=== PATIENT | female | born 1950 | race Caucasian/White ===

== ENCOUNTER 2016-08-08 11:28 | Emergency (ER) | payer SELFPAY ==
[~2016-08-08] VITALS: Ht 167.6 cm; Wt 108.9 kg
--- NOTE | 2016-08-08 11:38 | NUR ---
Patient to bed 6 at this time by EMS.
[2016-08-08 11:56] VITALS: BP 175/89
[2016-08-08] MEDS ORDERED: predniSONE 20 MG TAB PO ONE (12:05)
[2016-08-08] MEDS ORDERED: BUPIVACAINE-MPF 0.5% 10 ML VIAL INJ ONE (12:05)
[2016-08-08] MEDS ORDERED: ALBUTEROL SULFATE/IPRATROPIU 3 ML SOL IH ONE (12:05)
--- NOTE | 2016-08-08 12:10 | NUR ---
ADMITING DX: SEEKING MEDICAL ATTENTION HX: COPD/ASTHMA PATIENT AWAKE AND ALERT RESPONSIVE TO INSURANCE UNDERWRITING ASSISTANT VERBAL COMMANDS PATIENT C/O SON IN HFW POSITION SOB EDUCATION PROVIDED TO PATIENT WITH ACKNOWLEDGEMENT ON HHN THERAPY AND RESPIRATORY DRUG HHN THERAPY GIVEN ORDERED ENCOURAGED DEEP BREATH AND COUGH DURING THERAPY TOLERATED WELL WITHOUT INCIDENT
[2016-08-08] MEDS ORDERED: ONDANSETRON 4 MG/2 ML VIAL IM ONE (12:15)
[2016-08-08] MEDS ORDERED: HYDROmorphone 1 MG/ML AMP IM ONE (12:15)
--- NOTE | 2016-08-08 12:25 | NUR ---
XRAY AT BEDSIDE.
[2016-08-08] MEDS ORDERED: NEOMYCIN/POLYMYXIN/BACITRACIN 0.9 GM/1 PKT TP ONE (14:00)
[2016-08-08] MEDS ORDERED: HYDROmorphone 2 MG TAB PO ONE (14:05)
--- NOTE | 2016-08-08 14:25 | NUR ---
Taxi called for patient. Pt is going to pay for her taxi. Pt made aware, pt states she has her son that can help her at home.
[2016-08-08 15:05] VITALS: BP 174/81
--- NOTE | 2016-08-08 15:06 | NUR ---
Patient discharged with v/s stable. Written and verbal after care instructions given and explained. Patient alert, oriented and verbalized understanding of instructions. Ambulatory with steady gait. All questions addressed prior to discharge. ID band removed. Patient advised to follow up with PMD. Rx of DILAUDID, ZOFRAN given. Patient educated on indication of medication including possible reaction and side effects. Opportunity to ask questions provided and answered.
== END 2016-08-08 15:06 | disposition home or self-care (01) ==
LOC: MED 11:28
DX: S80.01XA Contusion of right knee, initial encounter (principal); S60.512A Abrasion of left hand, initial encounter; S00.212A Abrasion of left eyelid and periocular area, initial encounter; J45.909 Unspecified asthma, uncomplicated; J44.9 Chronic obstructive pulmonary disease, unspecified; W18.30XA Fall on same level, unspecified, initial encounter; Z91.81 History of falling; Y93.89 Activity, other specified; Y92.89 Other specified places as the place of occurrence of the external cause; Y99.8 Other external cause status; I10 Essential (primary) hypertension
CPT/HCPCS: 29505; 73130; 73562; 94640; 96372; 99284; J1170; J2405; J7512; J7620; Q0092; J3490